=== PATIENT | male | born 1960 | race African-American/Black ===

== ENCOUNTER 2019-05-08 09:08 | Day surgery (SDC) | payer OTHER ==
[~2019-05-08 09:08] MED LIST: NACL 0.9% 1000 ML 1,000 ML IV SCH
[2019-05-08] MEDS ORDERED: DIPRIVAN 10 MG/ML IV ONE ×2 (10:00→10:01)
--- NOTE | 2019-05-08 10:17 | Anesthesia Consultation ---
Anesthesia Consult and Med Hx - Pulmonary Hx Smoking: Yes
[2019-05-08] MEDS ORDERED: XYLOCAINE MPF 2% ONE (10:30)
--- NOTE | 2019-05-08 10:45 | Operative Report ---
Operative Report Operative Report: DOS: 05/08/19 SURGEON: Mango Ash MD EGD with biopsy and dilation REPORT PREOPERATIVE DIAGNOSIS and POSTOPERATIVE DIAGNOSIS: Esophageal dilation ESTIMATED BLOOD LOSS: minimal DESCRIPTION OF PROCEDURE: A high-resolution EGD scope was passed through the oropharynx, esophagus, stomach, and second portion of duodenum. The scope was carefully withdrawn. Retroflexion was performed in the stomach. At the end of the procedure, the scope was cleaned using normal technique. Vital signs monitored continuously throughout. SEDATION: Provided by [facility]. COMPLICATIONS: None. FINDINGS: * No gross lesions in the duodenum * No gross lesions in the stomach * [place] at 34 cm from the incisors * 1cm hiatal hernia * Mildly obstructing Schatzki ring at the distal esophagus. Biopsies obtained with cold biopsy forceps. * Esophageal dilation then performed. A guidewire was placed through the scope, then esophageal dilation performed over the guidewirewith 45Fr Savory dilator with moderate resistance. Scope was reinserted and post-dilation appearance showed moderate improvement in the Schatzki's ring, with no perforation * Remainder of the exam was normal RECOMMENDATIONS: * Avoid GERD inducing foods * Take a PPI every day * If dysphagia persists can return for further dilation CC note to PCP, Dr. Yeison Saez
--- NOTE | 2019-05-08 10:46 | Operative Report ---
Operative Report Operative Report: DOS:05/08/19 SURGEON: Mango Ash MD COLONOSCOPY with snare polypectomy REPORT PREOPERATIVE AND POSTOPERATIVE DIAGNOSIS: Screening colon DESCRIPTION OF PROCEDURE: The colonoscope was passed to the terminal ileum as identified by the ileal tissue. Scope was carefully withdrawn. Retroflexion was performed in the rectum. At the end of procedure, the scope was cleaned using normal technique. Vital signs monitored continuously throughout. SEDATION: Provided by [facility]. Quality of the prep was good COMPLICATIONS: None. ESTIMATED BLOOD LOSS: minimal FINDINGS: * Normal Terminal Ileum * 4mm sessile polyp ascending colon, removed with cold snare polypectomy * Small internal hemorrhoids * Remainder of the exam was normal RECOMMENDATIONS: * Repeat colonoscopy in 5-10 years based upon pathology results CC note to PCP, Dr. Yeison Saez
[2019-05-08 11:25] VITALS: BP 106/75
--- NOTE | 2019-05-08 14:39 | Anesthesia Consultation ---
Anesthesia Consult and Med Hx Date of service: 05/08/19 - Airway Anesthetic Teeth Evaluation: Good ROM Head & Neck: Adequate Mental/Hyoid Distance: Adequate Mallampati Class: Class II Intubation Access Assessment: Probably Good - Pulmonary Exam CTA: Yes - Cardiac Exam Cardiac Exam: RRR - Pre-Operative Health Status ASA Pre-Surgery Classification: ASA2 Proposed Anesthetic Plan: MAC - Pulmonary Hx Smoking: Yes (chews tobacco) Hx Asthma: No Hx Respiratory Symptoms: No SOB: No COPD: No Home Oxygen Therapy: No Hx Pneumonia: No Hx Sleep Apnea: No - Cardiovascular System Hx Hypertension: No Hx Coronary Artery Disease: No Hx Heart Attack/AMI: No Hx Angina: No Hx Percutaneous Transluminal Coronary Angioplasty (PTCA): No Hx Cardia Arrhythmia: No Hx Pacemaker: No Hx Internal Defibrillator: No Hx Valvular Heart Disease: No Hx Heart Murmur: No Hx Peripheral Vascular Disease: No - Central Nervous System Hx Neuromuscular Disorder: No Hx Seizures: No CVA: No Hx Back Pain: No Hx Psychiatric Problems: No - Endocrine Hx Renal Disease: No Hx End Stage Renal Disease: No Hx Cirrhosis: No Hx Liver Disease: No Hx Insulin Dependent Diabetes: No Hx Non-Insulin Dependent Diabetes: No Hx Thyroid Disease: No Hx Hypothyroidism: No Hx Hyperthyroidism: No - Hematic Hx Anemia: No Hx Sickle Cell Disease: No - Other Systems Hx Alcohol Use: No Hx Substance Use: No Hx Cancer: No Hx Obesity: No
== END 2019-05-08 09:09 | disposition home or self-care (01) ==
LOC: GIO 09:08
PROVIDERS: ATTEND Student in an Organized Health Care Education/Training Program
DX: Z12.11 Encounter for screening for malignant neoplasm of colon (principal); D12.2 Benign neoplasm of ascending colon; K64.8 Other hemorrhoids; K44.9 Diaphragmatic hernia without obstruction or gangrene; K21.0 Gastro-esophageal reflux disease with esophagitis; K29.70 Gastritis, unspecified, without bleeding; F17.210 Nicotine dependence, cigarettes, uncomplicated; Z79.899 Other long term (current) drug therapy; Z98.890 Other specified postprocedural states
CPT/HCPCS: 43239; 43248; 45385; 88305; C1769; J2704; J7030; 88312